=== PATIENT | male | born 1965 | race Caucasian/White ===

== ENCOUNTER 2023-12-30 03:20 | Inpatient (IN) | payer MEDICAID ==
[~2023-12-30] VITALS: Ht 170.2 cm; Wt 61.4 kg
[~2023-12-30 03:20] MED LIST: AMLO10TA80 PO; ATOR20TA PO; CLOP-31 PO; HYDR50TA39 PO; LOSA50TA41 PO; SEVE800T8 PO
[2023-12-30] MEDS ORDERED: TRANEXAMIC ACID 1,000MG/10ML IV ONE (03:45)
[2023-12-30 04:45] LABS: BASOPHILS % 0.9 % (0.0-2.0); HEMATOCRIT. 38.6 % (42.0-52.0); HEMOGLOBIN. 12.6 g/dL (14.0-18.0); LYMPHOCYTES % 19.7 % (20.0-50.0); MEAN CORPUSCULAR HEMOGLOBIN 32.5 pg (28.0-32.0); MEAN CORPUSCULAR HGB CONC 32.6 g/dL (31.0-37.0); MEAN CORPUSCULAR VOLUME 99.6 fL (80.0-94.0); MEAN PLATELET VOLUME 8.4 fl (7.4-10.4); MONOCYTES % 7.3 % (2.0-8.0); NEUTROPHILS % 66.1 % (40.0-76.0); PLATELET 179 x1000/uL (130-400); RED BLOOD CELL COUNT 3.88 mill/uL (4.7-6.1)
[2023-12-30 04:47] LABS: POTASSIUM 5.3 mEq/L (3.5-5.1)
[2023-12-30 04:48] LABS: CALCIUM 8.6 mg/dL (8.7-10.4)
[2023-12-30] MEDS: TRANEXAMIC ACID 1000MG PREMIX 100 ML IV NR (04:48)
[2023-12-30 05:08] LABS: CREATININE 10.4 mg/dL (0.6-1.3)
[2023-12-30] MEDS ORDERED: DOCUSATE SODIUM 100MG CAPSULE PO PRN (06:00)
[2023-12-30] MEDS ORDERED: IPRATROPIUM/ALBUTEROL 0.5-3(2.5)MG/3ML NEB HHN PRN (06:00)
[2023-12-30] MEDS ORDERED: GUAIFENESIN 200MG/10ML SUGAR FREE UDC PO PRN (06:00)
[2023-12-30] MEDS ORDERED: SODIUM POLYSTYRENE SULFONATE 15 G/60 ML BOT PO ONE (06:00)
[2023-12-30] MEDS ORDERED: ONDANSETRON HCL 4MG/2ML INJ IV PRN (06:00)
[2023-12-30 06:34] LABS: HEMATOCRIT 41.3 % (42.0-52.0); HEMOGLOBIN 13.7 g/dL (14.0-18.0)
[2023-12-30 06:45] LABS: INR 1.1; PARTIAL THROMBOPLASTIN TIME 34.2 sec (23.4-31.0)
[2023-12-30 06:47] LABS: CARBON DIOXIDE 27 mEq/L (21-32); CHLORIDE 97 mEq/L (98-107); POTASSIUM 5.5 mEq/L (3.5-5.1); SODIUM 134 mEq/L (136-145)
[2023-12-30 06:48] LABS: CALCIUM 9.1 mg/dL (8.7-10.4)
[2023-12-30 06:53] LABS: GLUCOSE 95 mg/dL (70-105); TRIGLYCERIDE 69 mg/dL (0-150); UREA NITROGEN BLOOD 69 mg/dL (9-23)
[2023-12-30 06:54] LABS: ALANINE AMINOTRANSFERASE 20 IU/L (10-49); ALBUMIN 4.8 g/dL (3.2-4.8); ASPARTATE AMINOTRANSFERASE 21 IU/L (<34); CREATINE KINASE 190 IU/L (46-171); LDL CHOLESTEROL 46 mg/dL (5-100)
[2023-12-30 06:55] LABS: BILIRUBIN DIRECT 0.1 mg/dL (<=3.0); BILIRUBIN TOTAL 0.3 mg/dL (0.1-1.0); CHOLESTEROL 105 mg/dL (<200); HDL CHOLESTEROL 41 mg/dL (>55); PROTEIN TOTAL 8.3 g/dL (6.0-8.3)
[2023-12-30 06:57] LABS: T4 FREE 1.15 ng/dL (0.89-1.76); THYROID STIMULATING HORMONE 4.33 uIU/mL (0.55-4.78)
[2023-12-30 07:09] LABS: CREATININE 10.3 mg/dL (0.6-1.3)
[2023-12-30 08:09] LABS: VITAMIN B12 SERUM 1182 pg/mL (211-911)
[2023-12-30 08:22] LABS: FOLIC ACID (FOLATE) SERUM > 20.00 ng/mL (>5.38)
[2023-12-30] MEDS: SODIUM ZIRCONIUM CYCLOSILICATE 10GM/PACKET PO NR (08:22)
[2023-12-30] MEDS: AMLODIPINE 10MG TABLET PO SCH (08:36)
[2023-12-30] MEDS: SEVELAMER CARBONATE 800 MG TABLET PO SCH (08:37)
[2023-12-30 12:49] LABS: HEMATOCRIT 43.6 % (42.0-52.0); HEMOGLOBIN 14.2 g/dL (14.0-18.0)
[2023-12-30 20:00] VITALS: BP_SYST 140; BP_SYST 167; BP_DIAS 53; BP_DIAS 61; PULSE 64; PULSE 76; RESP 18; RESP 20; TEMP 97.5; TEMP 97.7
[2023-12-30] MEDS: ATORVASTATIN CALCIUM 20MG TABLET PO SCH (20:26)
[2023-12-30 21:24] LABS: HEMATOCRIT 40.7 % (42.0-52.0); HEMOGLOBIN 13.3 g/dL (14.0-18.0)
[2023-12-30] MEDS ORDERED: FOLI1TAB87 PO (21:34)
[2023-12-30] MEDS ORDERED: ISOS30TA91 PO (21:34)
[2023-12-30] MEDS ORDERED: APIX2.5T PO (21:34)
[2023-12-30] MEDS ORDERED: METO25TA6 PO (21:34)
[2023-12-30] MEDS ORDERED: PANT40TA51 PO (21:34)
[2023-12-30] MEDS ORDERED: ASPI-1160 PO (21:34)
[2023-12-30 21:40] LABS: CREATINE KINASE 240 IU/L (46-171)
[2023-12-30 21:56] LABS: HEPATITIS B SURFACE ANTIGEN NEGATIVE (Negative)
[2023-12-30 22:16] LABS: HEPATITIS A AB IGM NEGATIVE (Negative)
[2023-12-30 22:17] LABS: HEPATITIS B CORE AB IGM NEGATIVE (Negative)
[2023-12-30 22:18] LABS: HEPATITIS C AB NON REACTIVE (Neg) (Negative)
[2023-12-30 23:24] VITALS: BP 140/53; PULSE 76; RESP 20; TEMP 97.5
[2023-12-31] VITALS (10 sets, daily range): BP systolic 100–155; BP diastolic 51–78; PULSE 61–78; RESP 18–20; TEMP 96.8–98.4; O2SAT 99
[2023-12-31 08:10] LABS: BASOPHILS % 1.2 % (0.0-2.0); EOSINOPHILS % 6.6 % (0.0-5.0); HEMATOCRIT. 39.3 % (42.0-52.0); HEMOGLOBIN. 12.8 g/dL (14.0-18.0); LYMPHOCYTES % 18.9 % (20.0-50.0); MEAN CORPUSCULAR HEMOGLOBIN 32.3 pg (28.0-32.0); MEAN CORPUSCULAR HGB CONC 32.6 g/dL (31.0-37.0); MEAN CORPUSCULAR VOLUME 98.9 fL (80.0-94.0); MEAN PLATELET VOLUME 9.7 fl (7.4-10.4); MONOCYTES % 6.9 % (2.0-8.0); NEUTROPHILS % 66.4 % (40.0-76.0); PLATELET 249 x1000/uL (130-400); RED BLOOD CELL COUNT 3.97 mill/uL (4.7-6.1); RED CELL DISTRIBUTION WIDTH 16.3 % (11.6-14.6); WHITE BLOOD COUNT 6.7 x1000/uL (4.5-11.0)
[2023-12-31] MEDS: ACETAMINOPHEN 325MG TABLET PO PRN (14:45)
== END 2023-12-31 18:30 | disposition home or self-care (01) | DRG 206 ==
LOC: ER 03:20 → 5WST 04:52 → EDBEDREQ 05:05 → EDBEDREQTM 05:05 → EDBEDREQSVC 05:05 → 7WST 18:35
PROVIDERS: ADMIT Internal Medicine; ATTEND Internal Medicine
PROC: 5A1D70Z Performance of Urinary Filtration, Intermittent, Less than 6 Hours Per Day (ICD-10-PCS; principal; 2023-12-30)
DX: T82.838A Hemorrhage due to vascular prosthetic devices, implants and grafts, initial encounter (principal); I12.0 Hypertensive chronic kidney disease with stage 5 chronic kidney disease or end stage renal disease; E83.51 Hypocalcemia; E87.1 Hypo-osmolality and hyponatremia; N18.6 End stage renal disease; E87.5 Hyperkalemia; D53.9 Nutritional anemia, unspecified; Y84.1 Kidney dialysis as the cause of abnormal reaction of the patient, or of later complication, without mention of misadventure at the time of the procedure; Y83.8 Other surgical procedures as the cause of abnormal reaction of the patient, or of later complication, without mention of misadventure at the time of the procedure; E78.5 Hyperlipidemia, unspecified; Z99.2 Dependence on renal dialysis; Y92.89 Other specified places as the place of occurrence of the external cause; Z79.899 Other long term (current) drug therapy; Z79.82 Long term (current) use of aspirin
CPT/HCPCS: 36415; 80048; 80061; 80076; 82550; 82607; 82746; 84439; 84443; 85014; 85018; 85025; 86705; 86709; 86850; 86900; 87340; 90935; 93970; 97166; 99291

== ENCOUNTER 2024-09-09 07:42 | Inpatient (IN) | payer MEDICAID ==
[~2024-09-09] VITALS: Ht 172.7 cm; Wt 55.6 kg
[~2024-09-09 07:42] MED LIST changes: +FOLI1TAB87 PO; +ISOS30TA91 PO; +METO25TA6 PO; +PANT40TA51 PO
[2024-09-09] MEDS: SODIUM CHLORIDE 0.9% 500 ML IV ONE (08:22)
[2024-09-09] MEDS: DIGOXIN 500MCG/2ML AMP IV ONE ×2 (08:26→09:32)
[2024-09-09 08:36] LABS: BASOPHILS % 0.4 % (0.0-2.0); EOSINOPHILS % 1.5 % (0.0-5.0); HEMATOCRIT. 22.1 % (42.0-52.0); HEMOGLOBIN. 7.4 g/dL (14.0-18.0); LYMPHOCYTES % 10.2 % (20.0-50.0); MEAN CORPUSCULAR HEMOGLOBIN 31.6 pg (28.0-32.0); MEAN CORPUSCULAR HGB CONC 33.3 g/dL (31.0-37.0); MEAN CORPUSCULAR VOLUME 95.1 fL (80.0-94.0); MEAN PLATELET VOLUME 8.4 fl (7.4-10.4); MONOCYTES % 8.1 % (2.0-8.0); NEUTROPHILS % 79.8 % (40.0-76.0); PLATELET 248 x1000/uL (130-400); RED BLOOD CELL COUNT 2.33 mill/uL (4.7-6.1); RED CELL DISTRIBUTION WIDTH 15.4 % (11.6-14.6); WHITE BLOOD COUNT 10.9 x1000/uL (4.5-11.0)
[2024-09-09 08:46] LABS: CARBON DIOXIDE 25 mEq/L (21-32); CHLORIDE 101 mEq/L (98-107); POTASSIUM 3.6 mEq/L (3.5-5.1); SODIUM 136 mEq/L (136-145)
[2024-09-09 08:47] LABS: CALCIUM 8.7 mg/dL (8.7-10.4)
[2024-09-09 08:52] LABS: ETHANOL BLOOD < 10 mg/dL (<10); GLUCOSE 162 mg/dL (70-105); UREA NITROGEN BLOOD 16 mg/dL (9-23)
[2024-09-09 08:53] LABS: ALANINE AMINOTRANSFERASE 24 IU/L (10-49)
[2024-09-09 08:54] LABS: ALBUMIN 3.1 g/dL (3.2-4.8); ASPARTATE AMINOTRANSFERASE 43 IU/L (<34); BILIRUBIN DIRECT 0.3 mg/dL (<=3.0); BILIRUBIN TOTAL 0.7 mg/dL (0.1-1.0); INR 1.2; PARTIAL THROMBOPLASTIN TIME 33.3 sec (23.4-31.0); PROTEIN TOTAL 6.5 g/dL (6.0-8.3); PROTHROMBIN TIME 12.8 sec (9.6-11.0)
[2024-09-09 08:55] LABS: LACTIC ACID 2.9 mmol/L (0.4-2.0)
[2024-09-09 08:56] LABS: CREATININE 3.1 mg/dL (0.6-1.3)
[2024-09-09 08:59] LABS: TROPONIN I HIGH SENSITIVITY 431 ng/L (3.0-53)
[2024-09-09] MEDS: CEFTRIAXONE 1GM/50ML 50 ML IV NR (10:30)
[2024-09-09] MEDS: METOPROLOL TARTRATE 5MG/5ML VIAL IV ONE (10:30)
[2024-09-09] MEDS: PANTOPRAZOLE SODIUM 40 MG/VIAL IV NR (10:30)
[2024-09-09] MEDS ORDERED: DOXYCYCLINE HYCLATE 100 MG/VIAL IV ONE (10:45)
[2024-09-09] MEDS: METOPROLOL TARTRATE 5MG/5ML VIAL IV NR (10:55)
[2024-09-09 12:07] LABS: TROPONIN I HIGH SENSITIVITY 609 ng/L (3.0-53)
[2024-09-09] MEDS ORDERED: IOHEXOL-350 100 ML BOTTLE ONE (12:30)
[2024-09-09 13:37] VITALS: BP 119/32; PULSE 94; RESP 24; TEMP 36.5
[2024-09-09] MEDS: DOXYCYCLINE 100MG/100ML 100 ML IV NR (16:00)
[2024-09-09 20:00] VITALS: BP 117/60; PULSE 110; RESP 22; TEMP 36.8; O2SAT 100
[2024-09-09] MEDS ORDERED: DOCUSATE SODIUM 100MG CAPSULE PO PRN (22:00)
[2024-09-09] MEDS ORDERED: IPRATROPIUM/ALBUTEROL 0.5-3(2.5)MG/3ML NEB HHN PRN (22:00)
[2024-09-09] MEDS ORDERED: CLONIDINE 0.1MG TABLET PO PRN (22:00)
[2024-09-09] MEDS ORDERED: ONDANSETRON HCL 4MG/2ML INJ IV PRN (22:00)
[2024-09-09] MEDS: ACETAMINOPHEN 325MG TABLET PO PRN (23:59)
[2024-09-10] VITALS: BP 123/60; PULSE 97; RESP 23; TEMP 37.2; O2SAT 97
[2024-09-10 00:20] LABS: TROPONIN I HIGH SENSITIVITY 13692 ng/L (3.0-53)
[2024-09-10 04:00] VITALS: BP 127/61; PULSE 83; RESP 18; TEMP 36.6; O2SAT 98
[2024-09-10 08:00] VITALS: BP 127/61; PULSE 86; RESP 21; TEMP 36.7; O2SAT 98
[2024-09-10 08:02] LABS: CALCIUM 7.9 mg/dL (8.7-10.4); POTASSIUM 4.4 mEq/L (3.5-5.1)
[2024-09-10] MEDS: ASPIRIN 81MG TABLET PO SCH (08:06)
[2024-09-10 08:47] LABS: CREATININE 5.9 mg/dL (0.6-1.3)
[2024-09-10 09:02] LABS: BASOPHILS % 0.5 % (0.0-2.0); EOSINOPHILS % 3.7 % (0.0-5.0); HEMATOCRIT. 24.7 % (42.0-52.0); HEMOGLOBIN. 8.1 g/dL (14.0-18.0); LYMPHOCYTES % 9.2 % (20.0-50.0); MEAN CORPUSCULAR HEMOGLOBIN 31.6 pg (28.0-32.0); MEAN CORPUSCULAR HGB CONC 32.8 g/dL (31.0-37.0); MEAN CORPUSCULAR VOLUME 96.5 fL (80.0-94.0); MEAN PLATELET VOLUME 8.1 fl (7.4-10.4); MONOCYTES % 12.9 % (2.0-8.0); NEUTROPHILS % 73.7 % (40.0-76.0); PLATELET 261 x1000/uL (130-400); RED BLOOD CELL COUNT 2.56 mill/uL (4.7-6.1); RED CELL DISTRIBUTION WIDTH 15.5 % (11.6-14.6); WHITE BLOOD COUNT 9.3 x1000/uL (4.5-11.0)
[2024-09-10 12:00] VITALS: BP 127/64; PULSE 88; RESP 15; TEMP 36.7; O2SAT 100
[2024-09-10] MEDS: SEVELAMER CARBONATE 800 MG TABLET PO SCH (13:23)
[2024-09-10] MEDS: HYDRALAZINE HCL 50MG TABLET PO SCH (14:00)
[2024-09-10 16:00] VITALS: BP 123/55; PULSE 86; RESP 25; TEMP 36.9; O2SAT 97
[2024-09-10 17:49] LABS: THYROID STIMULATING HORMONE 3.65 uIU/mL (0.55-4.78)
[2024-09-10 20:00] VITALS: BP 111/54; PULSE 95; RESP 15; TEMP 36.9; O2SAT 95
[2024-09-10] MEDS: METOPROLOL TARTRATE 25MG TABLET PO SCH (20:46)
[2024-09-10] MEDS: ATORVASTATIN CALCIUM 20MG TABLET PO SCH (20:46)
[2024-09-10] MEDS: ACETAMINOPHEN 325MG TABLET PO PRN (20:47)
[2024-09-11] VITALS: BP 123/46; PULSE 89; RESP 17; TEMP 37; O2SAT 96
[2024-09-11] MEDS: ASPIRIN 81MG TABLET PO NR
[2024-09-11] MEDS ORDERED: HEPARIN 25,000 UNITS PREMIX 250 ML IV PRN
[2024-09-11] MEDS ORDERED: HEPARIN 5000 UNITS/ML VIAL IV PRN ×2
[2024-09-11] MEDS ORDERED: HEPARIN BOLUS PRN aPTT 30-44 IV (01:15)
[2024-09-11] MEDS ORDERED: HEPARIN 60 UNITS/KG BOLUS IV SCH (01:15)
[2024-09-11] MEDS ORDERED: HEPARIN BOLUS PRN aPTT <30 IV ×2 (01:15→01:18)
[2024-09-11] MEDS: HEPARIN 60 UNITS/KG BOLUS IV NR (02:01)
[2024-09-11] MEDS: HEPARIN 25,000 UNITS PREMIX 250 ML IV SCH (02:11)
[2024-09-11 04:19] VITALS: BP 132/42; PULSE 94; RESP 26; TEMP 37.1; O2SAT 97
[2024-09-11 04:30] LABS: BASOPHILS % 0.6 % (0.0-2.0); EOSINOPHILS % 6.6 % (0.0-5.0); HEMATOCRIT. 24.8 % (42.0-52.0); HEMOGLOBIN. 8.3 g/dL (14.0-18.0); LYMPHOCYTES % 10.1 % (20.0-50.0); MEAN CORPUSCULAR HEMOGLOBIN 31.7 pg (28.0-32.0); MEAN CORPUSCULAR HGB CONC 33.6 g/dL (31.0-37.0); MEAN CORPUSCULAR VOLUME 94.5 fL (80.0-94.0); MEAN PLATELET VOLUME 8.1 fl (7.4-10.4); MONOCYTES % 9.6 % (2.0-8.0); NEUTROPHILS % 73.1 % (40.0-76.0); PLATELET 310 x1000/uL (130-400); RED BLOOD CELL COUNT 2.63 mill/uL (4.7-6.1); RED CELL DISTRIBUTION WIDTH 15.2 % (11.6-14.6); WHITE BLOOD COUNT 10.3 x1000/uL (4.5-11.0)
[2024-09-11] MEDS: PANTOPRAZOLE 40MG DR TABLET PO SCH (05:57)
[2024-09-11 08:00] VITALS: BP 127/43; PULSE 103; RESP 27; TEMP 36.8; O2SAT 96
[2024-09-11] MEDS: AMLODIPINE 10MG TABLET PO SCH (09:00)
[2024-09-11] MEDS: ASPIRIN 81MG TABLET PO SCH (09:00)
[2024-09-11] MEDS: CLOPIDOGREL 75MG TABLET PO SCH (09:43)
[2024-09-11] MEDS: ISOSORBIDE MONONITRATE 30MG TABLET SR 24HR PO SCH (09:45)
[2024-09-11 12:00] VITALS: BP 145/49; PULSE 99; RESP 30; TEMP 36.7; O2SAT 97
[2024-09-11] MEDS: HEPARIN BOLUS PRN aPTT 30-44 IV (12:06)
[2024-09-11 14:27] LABS: HEPATITIS B SURFACE ANTIGEN NEGATIVE (Negative)
[2024-09-11 14:48] LABS: HEPATITIS A AB IGM NEGATIVE (Negative); HEPATITIS B CORE AB IGM NEGATIVE (Negative)
[2024-09-11 14:49] LABS: HEPATITIS C AB NON REACTIVE (Neg) (Negative)
[2024-09-11 16:00] VITALS: BP 118/43; PULSE 101; RESP 18; TEMP 36.8; O2SAT 100
[2024-09-11 20:00] VITALS: BP 124/47; PULSE 102; RESP 26; TEMP 36.8; O2SAT 96
[2024-09-11] MEDS: METOPROLOL TARTRATE 50MG TABLET PO SCH (21:30)
[2024-09-12] VITALS: BP 127/54; PULSE 81; RESP 28; TEMP 36.8; O2SAT 95
[2024-09-12 04:00] VITALS: BP 122/54; PULSE 81; RESP 19; TEMP 36.9; O2SAT 100
[2024-09-12 07:06] LABS: BASOPHILS % 0.8 % (0.0-2.0); EOSINOPHILS % 5.5 % (0.0-5.0); HEMOGLOBIN. 7.8 g/dL (14.0-18.0); LYMPHOCYTES % 9.6 % (20.0-50.0); MEAN CORPUSCULAR HEMOGLOBIN 32.1 pg (28.0-32.0); MEAN CORPUSCULAR VOLUME 94.5 fL (80.0-94.0); MEAN PLATELET VOLUME 7.7 fl (7.4-10.4); MONOCYTES % 8.9 % (2.0-8.0); NEUTROPHILS % 75.2 % (40.0-76.0); PLATELET 360 x1000/uL (130-400); RED BLOOD CELL COUNT 2.43 mill/uL (4.7-6.1); RED CELL DISTRIBUTION WIDTH 15.4 % (11.6-14.6)
[2024-09-12 07:52] LABS: FERRITIN > 1650 ng/mL (22-322); FOLIC ACID (FOLATE) SERUM 15.79 ng/mL (>5.38)
[2024-09-12 07:53] LABS: VITAMIN B12 SERUM 1696 pg/mL (211-911)
[2024-09-12 08:00] VITALS: BP 155/64; PULSE 85; RESP 23; TEMP 36.7; O2SAT 97
[2024-09-12 09:16] LABS: CALCIUM 7.5 mg/dL (8.7-10.4); CHLORIDE 100 mEq/L (98-107); POTASSIUM 4.5 mEq/L (3.5-5.1); SODIUM 136 mEq/L (136-145)
[2024-09-12 09:17] LABS: CARBON DIOXIDE 25 mEq/L (21-32)
[2024-09-12 09:21] LABS: IRON 61 ug/dL (65-175)
[2024-09-12 09:22] LABS: GLUCOSE 124 mg/dL (70-105); UREA NITROGEN BLOOD 56 mg/dL (9-23)
[2024-09-12 09:24] LABS: PHOSPHORUS 2.8 mg/dL (2.5-4.9); TOTAL IRON BINDING CAPACITY 274 ug/dl (250-425)
[2024-09-12 09:42] LABS: CREATININE 8.7 mg/dL (0.6-1.3)
[2024-09-12 12:00] VITALS: BP 140/58; PULSE 77; RESP 28; TEMP 36.6; O2SAT 97
[2024-09-12 16:00] VITALS: BP 139/62; PULSE 87; RESP 25; TEMP 36.7; O2SAT 94
[2024-09-12] MEDS: APIXABAN 2.5 MG TABLET PO SCH (18:00)
[2024-09-12 20:00] VITALS: BP 117/43; PULSE 95; RESP 24; TEMP 36.8; O2SAT 95
[2024-09-13] VITALS (14 sets, daily range): BP systolic 90–170; BP diastolic 34–250; PULSE 19–98; RESP 19–46; TEMP 36.4–36.9; O2SAT 95–97
[2024-09-13 07:09] LABS: POTASSIUM 4.8 mEq/L (3.5-5.1)
[2024-09-13 07:10] LABS: CALCIUM 7.4 mg/dL (8.7-10.4)
[2024-09-13 07:42] LABS: HEMATOCRIT 23.9 % (42.0-52.0); HEMOGLOBIN 7.9 g/dL (14.0-18.0); MEAN CORPUSCULAR HGB CONC 33.2 g/dL (31.0-37.0); MEAN CORPUSCULAR VOLUME 96.4 fL (80.0-94.0); PLATELET 445 x1000/uL (130-400); RED BLOOD CELL COUNT 2.48 mill/uL (4.7-6.1); RED CELL DISTRIBUTION WIDTH 15.3 % (11.6-14.6); WHITE BLOOD COUNT 12.2 x1000/uL (4.5-11.0)
[2024-09-13 07:53] LABS: CREATININE 10.5 mg/dL (0.6-1.3)
== END 2024-09-13 14:00 | disposition home or self-care (01) | DRG 190 ==
LOC: ER 07:47 → EDBEDREQ 08:15 → 3WST 13:08
PROVIDERS: ADMIT Internal Medicine; ATTEND Internal Medicine
PROC: 5A1D70Z Performance of Urinary Filtration, Intermittent, Less than 6 Hours Per Day (ICD-10-PCS; principal; 2024-09-13)
DX: I21.4 Non-ST elevation (NSTEMI) myocardial infarction (principal); I31.39 Other pericardial effusion (noninflammatory); E46 Unspecified protein-calorie malnutrition; E87.20 Acidosis, unspecified; I12.0 Hypertensive chronic kidney disease with stage 5 chronic kidney disease or end stage renal disease; I47.10 Supraventricular tachycardia, unspecified; Q44.6 Cystic disease of liver; I48.91 Unspecified atrial fibrillation; N18.6 End stage renal disease; Z99.2 Dependence on renal dialysis; D64.9 Anemia, unspecified; K76.89 Other specified diseases of liver; E78.5 Hyperlipidemia, unspecified; R74.01 Elevation of levels of liver transaminase levels; R16.0 Hepatomegaly, not elsewhere classified; I25.10 Atherosclerotic heart disease of native coronary artery without angina pectoris; Z95.5 Presence of coronary angioplasty implant and graft; Z86.73 Personal history of transient ischemic attack (TIA), and cerebral infarction without residual deficits; Z68.1 Body mass index [BMI] 19.9 or less, adult; Z79.01 Long term (current) use of anticoagulants; Z79.02 Long term (current) use of antithrombotics/antiplatelets; Z79.899 Other long term (current) drug therapy
CPT/HCPCS: 36415; 71045; 71275; 74176; 76700; 76770; 80048; 80061; 80076; 80320; 82105; 82607; 82728; 82746; 83036; 83540; 83550; 83605; 83735; 83880; 84100; 84145; 84443; 84484; 85025; 85027; 86705; 86709; 86850; 86900; 87340; 90935; 93005; 93306; 93970; 99285; A4606; J0696; J1160; J1644; J2470; J3490; J7040; Q9967; G0480